=== PATIENT | female | born 1965 | race Caucasian/White ===

== ENCOUNTER 2018-11-18 12:51 | Emergency (ER) | payer MEDICARE, MEDICAID ==
[2018-11-18 13:18] VITALS: BP 131/78
--- NOTE | 2018-11-18 13:28 | UC ---
Lower Extremity/Ankle HPI - HPI Summary HPI Summary: 53 year old female presents with complaints of left foot and ankle pain. States 2 weeks ago she was standing up and did not realize her leg had fallen asleep and when she tried to take a step she was not able to bear her weight, rolled her left ankle, and then fell to the ground sitting on her left foot. Reports the bruising and swelling that occurred after the injury have improved but she continues to experience pain to the lateral aspect of her left foot when she walks and bears weight on the foot. Denies numbness or tingling. - History of Current Complaint Chief Complaint: UCLowerExtremity Stated Complaint: LEFT FOOT INJURY Time Seen by Provider: 11/18/18 13:07 Hx Obtained From: Patient Pain Intensity: 4 - Allergies/Home Medications Allergies/Adverse Reactions: Allergies Allergy/AdvReac Type Severity Reaction Status Date / Time Penicillins Allergy Severe Hives Verified 11/18/18 13:09 Home Medications: Home Medications ARIPiprazole TAB* [Abilify TAB*] 1 tab DAILY 11/18/18 [History Confirmed ] Aspirin EC TAB* [Ecotrin EC Low Dose 81 MG*] 1 tab DAILY 11/18/18 [History Confirmed 11/18/18] Escitalopram Oxalate [Lexapro 20 mg] 1 tab DAILY 11/18/18 [History Confirmed ] PMH/Surg Hx/FS Hx/Imm Hx Previously Healthy: Yes Respiratory History: COPD Psychological History: Depression - Surgical History Surgical History: Yes Surgery Procedure, Year, and Place: [place]. Partial hysterectomy - Family History Known Family History: Positive: Non-Contributory - Social History Occupation: Disabled Lives: With Family Alcohol Use: None Substance Use Type: None Smoking Status (MU): Light Every Day Tobacco Smoker Type: Cigarettes Amount Used/How Often: 6-10 cig/day Review of Systems All Other Systems Reviewed And Are Negative: Yes Constitutional: Negative: Fever, Chills Skin: Positive: Bruising Respiratory: Positive: Negative Cardiovascular: Positive: Negative Gastrointestinal: Positive: Negative Genitourinary: Positive: Negative Motor: Negative: Weakness Neurovascular: Negative: Decreased Sensation Musculoskeletal: Positive: Other: - See HPI Neurological: Positive: Negative Is Patient Immunocompromised?: No Physical Exam - Summary Physical Exam Summary: GENERAL APPEARANCE: Well developed, well nourished, alert and cooperative, and appears to be in no acute distress. CARDIAC: Normal S1 and S2. No S3, S4 or murmurs. Rhythm is regular. There is no peripheral edema, cyanosis or pallor. Extremities are warm and well perfused. Capillary refill is less than 2 seconds. Peripheral pulses intact. LUNGS: Clear to auscultation without rales, rhonchi, wheezing or diminished breath sounds. ABDOMEN: Positive bowel sounds. Soft, nondistended, nontender. No guarding or rebound. No masses or hepatosplenomegally. MUSKULOSKELETAL: Normal muscular development. Tenderness to lateral left foot over the proximal 5th metatarsal without gross deformity. Mild ecchymosis noted without swelling. Circulation and sensation intact distally. Able to bear weight. Limping gait. SKIN: Skin normal color, texture and turgor. Triage Information Reviewed: Yes Vital Signs: Initial Vital Signs Temp 98 F 11/18/18 13:11 Pulse 90 11/18/18 13:11 Resp 20 11/18/18 13:11 BP 131/78 11/18/18 13:11 Pulse Ox 98 11/18/18 13:11 Vital Signs Reviewed: Yes Diagnostics - Radiology No standard instances Radiology Interpretation Completed By: Radiologist Summary of Radiographic Findings: Patient Name: HARI MCMAHON Medical Record#: [id number]. Ordering Physician: James Ward NP Acct.#: [id number]. : 1965 Age: 53 Sex: F Location: [facility]. Exam Date: 131 ADM Status: REG ER. Order Information: FOOT LEFT 3+ VWS. Accession Number: [id number]. CPT: 89839. INDICATION: Left foot injury. TECHNIQUE: 3 views of the left foot were obtained. FINDINGS: The bones are in normal alignment. No fracture is seen. Joint spaces appear. maintained. IMPRESSION: NO EVIDENCE FOR FRACTURE Lower Extremity Course/Dx - Course Course Of Treatment: 53 year old female presents with complaints of left foot and ankle pain. States 2 weeks ago she was standing up and did not realize her leg had fallen asleep and when she tried to take a step she was not able to bear her weight, rolled her left ankle, and then fell to the ground sitting on her left foot. Reports the bruising and swelling that occurred after the injury have improved but she continues to experience pain to the lateral aspect of her left foot when she walks and bears weight on the foot. Denies numbness or tingling. Afebrile. Vital signs stable. Exam reveals adult female in no acute distress with tenderness to lateral left foot over the proximal 5th metatarsal without gross deformity. Mild ecchymosis noted without swelling. Circulation and sensation intact distally. Able to bear weight. Limping gait. Otherwise unremarkable exam. X-ray shows no acute fracture or dislocation. Patient was placed in a post-op shoe. Recommending conservative treatment for a left foot sprain including naproxen 500 mg BID for pain. She is to follow up with her PCP in 7 days if symptoms do not improve. Anticipatory guidance and warning symptoms reviewed with patient. Verbalizes understanding and agrees with POC. - Differential Dx/Diagnosis Differential Diagnosis/HQI/PQRI: Contusion, Fracture (Closed), Sprain, Strain, Tendonitis Provider Diagnosis: Sprain of left foot Discharge - Sign-Out/Discharge Documenting (check all that apply): Patient Departure All imaging exams completed and their final reports reviewed: Yes - Discharge Plan Condition: Stable Disposition: HOME Prescriptions: Naproxen [Naproxen 500 mg tab] 500 mg PO Q12HR #30 tablet Patient Education Materials: Foot Sprain (ED) Referrals: Mook Montgomery MD [Primary Care Provider] - 7 Days (If no improvement in symptoms.) Additional Instructions: The x-ray of your foot performed in the clinic today showed no evidence of fracture. I suspect that you sprained the foot. Take naproxen 1 tab every 12 hours with food for next 5 days then may take as needed. Rest the foot as much as possible. You may continue to walk and bear weight as tolerated. Use the post-op shoe provided to you in the clinic for support. Keep the foot elevated when sitting to help reduce swelling. Follow up with your primary care provider in 7 days if no improvement in symptoms. - Billing Disposition and Condition Condition: STABLE Disposition: Home
== END 2018-11-18 13:48 | disposition home or self-care (01) ==
LOC: UCCORT 12:51
DX: S93.602A Unspecified sprain of left foot, initial encounter (principal); F17.210 Nicotine dependence, cigarettes, uncomplicated; J44.9 Chronic obstructive pulmonary disease, unspecified; F32.9 Major depressive disorder, single episode, unspecified; Z79.899 Other long term (current) drug therapy; W18.39XA Other fall on same level, initial encounter; Y92.9 Unspecified place or not applicable
CPT/HCPCS: 99203; G0463